=== PATIENT | male | born 1940 | race Two or more races ===

== ENCOUNTER 2019-06-01 15:05 | Inpatient (IN) | payer OTHER ==
[~2019-06-01] VITALS: Ht 172.7 cm; Wt 81.6 kg
[2019-06-20] MEDS ORDERED: IRBESARTAN (08:55)
[2019-06-20] MEDS ORDERED: ARICEPT5 MG PO (08:56)
[2019-06-20] MEDS ORDERED: [UNRECOGNIZED DRUG - OTHER] PO (08:56)
[2019-06-28] MEDS ORDERED: MEMANTINE HCL5 MG PO (10:05)
[2019-06-28] MEDS ORDERED: ADALAT CC90 MG PO (10:06)
[2019-06-28] MEDS ORDERED: NIFEDIPINE ER30 M1 PO (10:06)
[2019-06-28] MEDS ORDERED: IRBESARTAN-HCT1 EAC1 (10:06)
== END 2019-06-29 10:45 | disposition home or self-care (01) | DRG 661 ==
LOC: O/R 06-27 05:10 → SURH 06-27 05:10 → SURG 06-27 07:00 → SURH 06-27 13:19
PROVIDERS: ADMIT Urology
PROC: 0TC03ZZ Extirpation of Matter from Right Kidney, Percutaneous Approach (ICD-10-PCS; principal; 2019-06-27 08:30)
DX: N20.0 Calculus of kidney (principal); I10 Essential (primary) hypertension